=== PATIENT | female | born 1970 | race Caucasian/White ===

== ENCOUNTER 2022-04-13 06:37 | Observation (INO) ==
--- NOTE | 2022-01-20 14:47 | PAT Medication Instructions ---
Medication Instructions Date of Service January 20, 2022 Home Medications ibuprofen 200 mg tablet 200 mg PO Q6H PRN ASK your surgeon for instructions ibuprofen 200 mg tablet 200 mg PO Q6H PRN Other Notes NOTHING TO EAT OR DRINK AFTER MIDNIGHT. If you have any questions please call us at [phone] or [phone] or [phone] or [phone]
--- NOTE | 2022-01-25 08:24 | Anesthesiology Consultation ---
Date of Service January 25, 2022 Assessment & Plan (1) Encounter for pre-operative examination: - upcoming PCP pre-op appointment 02/10/22. Outpatient joint assessment: Patient is currently scheduled for inpatient pathway. If re-evaluated pending system levels during current pandemic/surgeon requests outpatient pathway, patient is acceptable candidate for outpatient joint program from anesthesia standpoint pending surgeon's office assessment of pt motivation/support/completion of same day joint program preop requirements. - COVID screening: Per fur blender on 01/20/2022: Travel screen Madison Dotson MD, no known COVID-19 positive contacts or current COVID-19 related symptoms in past 2 weeks. To surgeon's discretion if preop COVID testing needed. Chart Review Chart Review: Pending: Refer to Additional Notes / Consult section and Patient seen in Pre Admission Testing Teaching & Discussion Pre-Anesthesia Teaching/Discussion Notes: Instructed NPO after midnight before surgery, except medications with 15 cc of water. Medication instructions provided according to the PAT guidelines. History Surgery Operation Date: 03/03/22 11:35 Proposed Procedures p Left Total Knee Arthroplasty - Roldan Mcguire DO Height/Weight Height: 5 ft 2 in Weight: 90.5 kg Allergies Allergy/AdvReac Type Severity Reaction Status Date / Time nitrofurantoin Allergy Severe elevated Verified 01/20/22 09:34 LFTs latex Allergy Unknown localized Verified 01/20/22 09:34 SWELLING,HIVES,ITCHINESS morphine AdvReac Unknown Headache Verified 01/20/22 09:37 Medications Home Medications Medication Instructions Recorded Confirmed Last Taken ibuprofen 200 mg tablet 200 mg PO Q6H PRN Pain 01/20/22 01/20/22 Unknown Past Medical History Medical History (Updated 01/25/22 @ 08:36 by Sayra Juarez PA-C) Ectopic GERD (gastroesophageal reflux disease) History of blood transfusion Hx of hepatitis C 2019 TREATED Hypertension elevated in stressful clinical settings per pt Tobacco use Transaminitis Patient denies h/o stroke, seizures, heart attack, heart failure, DM, HTN, or blood clots. Exercise / Class Metabolic Activity III < 4 Walking/Shop/Light housework (denies CP or SOB with usual activities) Past Family History Family History Brother Drug abuse Diabetes Anxiety Hypertension Father Diabetes Kidney stones Kidney disease Hypertension Grandfather Myocardial infarction Uncle Myocardial infarction Other No family history of adverse response to anesthesia Past Surgical History Surgical History H/O left knee surgery L knee manipulated and scraped. H/O right knee surgery 3 ligaments replaced. History of surgery on wrist 11/2021- right History of unilateral fallopian tube excision S/P TKR (total knee replacement) right Past Anesthesia History No Hx of Anesthesia Complications and No Family Hx of Anesthesia Complications History of PONV No Hx of PONV and No Hx of Motion Sickness Social History Smoking Status: Current every day smoker tobacco type: cigarettes Smoking cigarettes per day: 1/2 PK PER DAY - ADVISED Do You Dip or Chew Tobacco: No Hx Alcohol Use: Yes alcohol intake frequency: a few times a month Hx Substance Use: Yes (COUPLE TIMES PER WEEK - ADVISED) substance use type: marijuana Review of Systems Snoring, denies witnessed apneas. Chronic dry cough, ongoing x yrs. Denies change or worsening. Patient denies chest pain, shortness of breath, dyspnea on exertion, fever, chills or wheezing. Physical Exam Vital Signs Vitals BP 158/96 P 80 TEMP 98.0 SP02 100% on RA RESP 17 Physical Full cervical extension range of motion without pain TMD 3.5 finger breadths Mallampati Score 2 Dentition: intact, upper right side chipped tooth; denies loose teeth, caps/crowns, implants or bridges Lungs: normal respiratory effort. Clear throughout to auscultation, no adventitious breath sounds Cardiac: regular rate and rhythm, no murmurs noted Carotid arteries: negative bruit bilat Lab Results Anesthesia Preop Results Results Anesthesia Widget: WBC 7.95 K/ul (4.8-10.8) 01/25/22 Hgb 13.9 g/dl (12.0-16.0) 01/25/22 Hct 40.9 % (34.1-44.9) 01/25/22 Plt 271 K/uL (130-400) 01/25/22 Na 139 mmol/L (136-145) 01/25/22 K 4.3 mmol/L (3.5-5.1) 01/25/22 Cl 108 mmol/L (98-107) H 01/25/22 CO2 25 mmol/L (21-32) 01/25/22 BUN 20 mg/dl (6-23) 01/25/22 Creat 0.87 mg/dl (0.6-1.2) 01/25/22 Glucose Level 95 mg/dl (70-99(Fasting)) 01/25/22 PT 10.6 Seconds (9.0-12.0) 01/25/22 PTT 29.3 Seconds (21.0-31.0) 01/25/22 INR 1.0 (0.9-1.1) 01/25/22 HA1c 5.9 % (4.5-5.6) H 01/25/22 Urine Color Yellow 01/25/22 Urine Appearance Clear (Clear) 01/25/22 Urine pH 5.5 (4.5-7.5) 01/25/22 Urine Specific Gilman 1.022 (1.000-1.030) 01/25/22 Urine Protein Negative (Negative) 01/25/22 Urine Glucose (UA) Negative (Negative) 01/25/22 Urine Ketones Negative (Negative) 01/25/22 Urine Blood Negative (Negative) 01/25/22 Urine Nitrite Negative (Negative) 01/25/22 Urine Bilirubin Negative (Negative) 01/25/22 Urine Urobilinogen Negative (Negative) 01/25/22 Urine Leukocyte Esterase Negative (Negative) 01/25/22 Blood Type B Positive 01/25/22 Antibody Screen NEGATIVE 01/25/22 Testing Electrocardiogram Date: 01/25/22 NSR, rate 75 bpm Chest X-Ray Date: 01/25/22 No acute cardiopulmonary findings COVID-19 Risk Screen Screening Information COVID-19 Screen Date: 01/25/22 Exposure 21 Days Family/Household +COVID Last 21 Days: No Exposure 10 Days Any COVID Exposure Last 10 Days: No Symptoms Last 10 Days Experienced COVID Sx Last 10 Days: No + COVID 0-90 Days COVID + in Last 0-90 Days: No
--- NOTE | 2022-02-12 08:29 | History & Physical Report ---
Date of Service February 12, 2022 date of surgery: 03/03/22 Procedure: Left Total Knee Arthroplasty Surgeon: Roldan Mcguire Assessment & Plan (1) Arthritis of knee, left: Plan: Further care discussed with patient and at this point in time has failed conservative measures and would like to proceed with a left total knee replacement. Plan on discharge will be home with home health physical therapy, evaluate for possible outpatient pathway. DVT prophylaxiswith TEDs, SCDs and will also place on aspirin 81 mg p.o. b.i.d. for a month postop. Patient will have follow up appointment in our office two weeks post op for staple/suture removal and re-evaluation. Patient otherwise has no other questions or concerns. The risks and benefits have been discussed including, but not limited to, risk of infection, nerve injury, stiffness, loss of motion, failure to improve, etc. Reasonable outcomes and options of treatment were discussed. An explanation of appropriate alternatives to the procedure that may be advantageous were discussed and their risks and benefits, as well as the risks and benefits of not proceeding with treatment. I offered to answer any additional inquiries concerning the treatment involved. All the patient's questions were answered. The patient is agreeable, understanding of the treatment plan and alternatives, and wishes to proceed with the treatment plan. History of Present Illness Chief Complaint: left knee pain Primary Care Provider: Judy Watkins DO Freya is a pleasant 52-year-old female who presents for preop evaluation prior to her left total knee replacement. She been having pain in this knee for many years now which is gradually worsened, is now affecting her daily activities including walking standing going up and down steps. She had previous knee arthroscopy in 2014 and since that time is undergone multiple injections including corticosteroid as well as viscosupplementation as well as clinical trials. At this point time she has failed conservative measures and like to proceed with surgical intervention. She is also tried oral anti-inflammatories as well as Tylenol with little to no relief. Allergies Allergy/AdvReac Type Severity Reaction Status Date / Time nitrofurantoin Allergy Severe elevated Verified 02/03/22 13:52 LFTs latex Allergy Unknown localized Verified 02/03/22 13:52 SWELLING,HIVES,ITCHINESS morphine AdvReac Unknown Headache Verified 02/03/22 13:52 Home Medications Medication Instructions Recorded Confirmed Type ibuprofen 200 mg tablet 200 mg PO Q6H PRN Pain 01/20/22 02/03/22 History Past Med/Surg History Medical History Ectopic GERD (gastroesophageal reflux disease) History of blood transfusion Hx of hepatitis C 2019 TREATED Hypertension elevated in stressful clinical settings per pt Knee pain Prediabetes Ruptured, fallopian tube Tobacco use Transaminitis Surgical History H/O left knee surgery L knee manipulated and scraped. H/O right knee surgery 3 ligaments replaced. History of surgery on wrist 11/2021- right History of unilateral fallopian tube excision S/P TKR (total knee replacement) right Family History Brother Drug abuse Diabetes Anxiety Hypertension Father Diabetes Kidney stones Kidney disease Hypertension Grandfather Myocardial infarction Uncle Myocardial infarction Father Throat cancer Aunt Myocardial infarction Other No family history of adverse response to anesthesia Denies family history of Ovarian cancer Prostate cancer Breast cancer Colorectal cancer Social History Smoking Status: Current every day smoker Tobacco Type: Cigarettes Age Started Using Tobacco: 18; packs per day: 0.5; Cigarettes Per Day: 1/2 PK PER DAY; Second Hand Exposure: No; Hx Alcohol Use: Yes Alcohol Intake Frequency: 2-3 x/Week Hx Substance Use: Yes (COUPLE TIMES PER WEEK - ADVISED) Prescribed Medications: Marijuana Preferred Language: Georgian Communication Ability: Effective Visual Impairment: No Limitations Hearing Ability: Normal Hydraulic Assembler Required: No Beliefs That Will Affect Care: None marital status: Single Current Living Situation: Other Current Living Situation Comment: LIVES W/ ROOMMATE current occupational status: employed current occupation: [employer] Feels Safe at Home: Yes Childhood Exposure to Second-Hand Smoke: No caffeine: Yes during the past year weight has: remained stable Dental Care, Regularly: Yes Physical Activity Frequency: Does not Exercise Seatbelt Use: always Sunscreen Use: Yes Assistive Devices: Cane Review of Systems Review of Systems: All systems reviewed & are unremarkable except as noted in HPI & below Constitutional: no fever, no chills and no sweats Respiratory: no cough and no dyspnea Cardiovascular: no chest pain, no dyspnea and no orthopnea Gastrointestinal: no abdominal pain, no nausea and no vomiting Musculoskeletal: as per Subjective / HPI Physical Exam Physical Exam: HT: 5ft 2in WT: 90.5kg Constitutional: WD/WN, vitals as above no acute distress Respiratory: normal respiratory effort, lungs clear to auscultation no respiratory distress, no labored breathing and does not use accessory muscles Cardiovascular: RRR, no murmur, no edema Gastrointestinal (Abdomen): normal bowel sounds, soft, nontender, no hepatosplenomegaly Musculoskeletal: Knee: + knee abnormal to inspection (LEFT KNEE: ), + effusion (+1 effusion), + surgical incision (well healed portals), + limited ROM of knee (ROM 0/3/110), + knee ROM with crepitation, + joint line tenderness (medial joint line) and + Jen's sign positive; no deformity, no skin erythema, no ecchymosis, no valgus laxity, no varus laxity, anterior drawer test negative, Helder's sign negative and pivot shift test negative Results & Data Results & Data ([facility]) Diagnostic Findings Left Knee X-ray: left knee series confirms degenerative changes to the left knee, greatest medial compartments and patellofemoral joint, showing joint space narrowing, osteophyte formation and subchondral sclerosis. no acute bony pathology noted.
--- NOTE | 2022-03-22 10:10 | History & Physical Report ---
Date of Service March 22, 2022 date of surgery: 04/13/22 Procedure: Left Total Knee Arthroplasty Surgeon: Roldan Mcguire Assessment & Plan (1) Arthritis of knee, left: Plan: Further care discussed with patient and at this point in time has failed conservative measures and would like to proceed with a left total knee replacement. Plan on discharge will be home with home health physical therapy, evaluate for possible outpatient pathway. DVT prophylaxiswith TEDs, SCDs and will also place on aspirin 81 mg p.o. b.i.d. for a month postop. Patient will have follow up appointment in our office two weeks post op for staple/suture removal and re-evaluation. Patient otherwise has no other questions or concerns. The risks and benefits have been discussed including, but not limited to, risk of infection, nerve injury, stiffness, loss of motion, failure to improve, etc. Reasonable outcomes and options of treatment were discussed. An explanation of appropriate alternatives to the procedure that may be advantageous were discussed and their risks and benefits, as well as the risks and benefits of not proceeding with treatment. I offered to answer any additional inquiries concerning the treatment involved. All the patient's questions were answered. The patient is agreeable, understanding of the treatment plan and alternatives, and wishes to proceed with the treatment plan. History of Present Illness Chief Complaint: left knee pain Primary Care Provider: Judy Watkins DO Freya is a pleasant 52-year-old female who presents for preop evaluation prior to her left total knee replacement. She been having pain in this knee for many years now which is gradually worsened, is now affecting her daily activities including walking standing going up and down steps. She had previous knee arthroscopy in 2014 and since that time is undergone multiple injections including corticosteroid as well as viscosupplementation as well as clinical trials. At this point time she has failed conservative measures and like to proceed with surgical intervention. She is also tried oral anti-inflammatories as well as Tylenol with little to no relief. Allergies Allergy/AdvReac Type Severity Reaction Status Date / Time nitrofurantoin Allergy Severe elevated Verified 02/22/22 10:31 LFTs latex Allergy Unknown localized Verified 02/22/22 10:31 SWELLING,HIVES,ITCHINESS morphine AdvReac Unknown Headache Verified 02/22/22 10:31 Home Medications Medication Instructions Recorded Confirmed Type ibuprofen 200 mg tablet 200 mg PO Q6H PRN Pain 01/20/22 02/22/22 History Past Med/Surg History Medical History Ectopic GERD (gastroesophageal reflux disease) History of blood transfusion Hx of hepatitis C 2019 TREATED Hypertension elevated in stressful clinical settings per pt Knee pain Prediabetes Ruptured, fallopian tube Tobacco use Transaminitis Surgical History H/O left knee surgery L knee manipulated and scraped. H/O right knee surgery 3 ligaments replaced. History of surgery on wrist 11/2021- right History of unilateral fallopian tube excision S/P TKR (total knee replacement) right Family History Brother Drug abuse Diabetes Anxiety Hypertension Father Diabetes Kidney stones Kidney disease Hypertension Grandfather Myocardial infarction Uncle Myocardial infarction Father Throat cancer Aunt Myocardial infarction Other No family history of adverse response to anesthesia Denies family history of Ovarian cancer Prostate cancer Breast cancer Colorectal cancer Social History Smoking Status: Current every day smoker Tobacco Type: Cigarettes Age Started Using Tobacco: 18; packs per day: 0.5; Cigarettes Per Day: 1/2 PK PER DAY; Second Hand Exposure: No; Hx Alcohol Use: Yes Alcohol Intake Frequency: 2-3 x/Week Hx Substance Use: Yes (COUPLE TIMES PER WEEK - ADVISED) Prescribed Medications: Marijuana Preferred Language: Chadian Communication Ability: Effective Visual Impairment: No Limitations Hearing Ability: Normal Repossession Agent Required: No Beliefs That Will Affect Care: None marital status: Single Current Living Situation: Other Current Living Situation Comment: LIVES W/ ROOMMATE current occupational status: employed 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 Feels Safe at Home: Yes Childhood Exposure to Second-Hand Smoke: No caffeine: Yes during the past year weight has: remained stable Dental Care, Regularly: Yes Physical Activity Frequency: Does not Exercise Seatbelt Use: always Sunscreen Use: Yes Assistive Devices: Cane Review of Systems Constitutional: no fever, no chills and no sweats Respiratory: no cough and no dyspnea Cardiovascular: no chest pain, no dyspnea and no orthopnea Gastrointestinal: no abdominal pain, no nausea and no vomiting Musculoskeletal: as per Subjective / HPI Physical Exam Physical Exam: HT: 5ft 2in WT: 90.5kg Constitutional: WD/WN, vitals as above no acute distress Respiratory: normal respiratory effort, lungs clear to auscultation no respiratory distress, no labored breathing and does not use accessory muscles Cardiovascular: RRR, no murmur, no edema Gastrointestinal (Abdomen): normal bowel sounds, soft, nontender, no hepatosplenomegaly Musculoskeletal: Knee: + knee abnormal to inspection (LEFT KNEE: ), + effusion (+1 effusion), + surgical incision (well healed portals), + limited ROM of knee (ROM 0/3/110), + knee ROM with crepitation, + joint line tenderness (medial joint line) and + Jen's sign positive; no deformity, no skin erythema, no ecchymosis, no valgus laxity, no varus laxity, anterior drawer test negative, Helder's sign negative and pivot shift test negative Results & Data Results & Data ([facility]) Diagnostic Findings Left Knee X-ray: left knee series confirms degenerative changes to the left knee, greatest medial compartments and patellofemoral joint, showing joint space narrowing, osteophyte formation and subchondral sclerosis. no acute bony pathology noted.
[~2022-04-13 06:37] MED LIST: ACETAMINOPHEN 500 MG TAB PO SCH; CeleBREX 200 MG CAP PO SCH; FAMOTIDINE 20 MG TAB PO SCH; GABAPENTIN 900 MG DOSE PO SCH; LR 500ML BOLUS, THEN 15ML/HR IV SCH; MEPIVACAINE HCL 1.5% 30 ML VIAL ONE; METOCLOPRAMIDE HCL 10 MG TABLET PO SCH; ROPIVACAINE 0.5% 5 MG/ML 30 ML VIAL ONE; ROPIVACAINE 0.5% HCL/PF 150 MG, BUPIVACAINE 0.75% MPF 20 ML, EPINEPHrine 30MG/30ML (OR ... INSTIL SCH; TRANEXAMIC ACID 1,000 MG **IV Intra-op IV SCH; TRANEXAMIC ACID 1,000 MG **IV Pre-op IV SCH; ceFAZolin 2000MG 2,000 MG/15 ML SYR IV SCH; dexAMETHasone 4 MG TAB PO SCH
[2022-04-13] MEDS ORDERED: MIDAZOLAM HCL 1 MG/ML 2ML VIAL ONE (06:53)
[2022-04-13] MEDS ORDERED: KETAMINE 50 MG/5 ML SYRINGE ONE (06:54)
[2022-04-13] MEDS ORDERED: ORTHO JOINT ANESTHETIC ONE (07:08)
[2022-04-13 07:15] LABS: Basophils # (auto) 0.04 K/uL (0-0.2); Basophils % (auto) 0.5 %; Eosinophils # (auto) 0.49 K/uL (0-0.50); Hematocrit (blood only) 43.2 % (34.1-44.9); Hemoglobin 14.5 g/dl (12.0-16.0); Immature Granulocytes # (auto) 0.01 K/uL (0.00-0.02); Immature Granulocytes % (auto) 0.1 %; Lymphocytes # (auto) 3.48 K/uL (1.2-3.4); Lymphocytes % (auto) 42.8 %; Mean Corpuscular Hemoglobin 28.7 pg (25.0-34.0); Mean Corpuscular Hgb Conc 33.6 g/dL (32.0-36.0); Mean Corpuscular Volume 85.5 fL (80.0-100.0); Monocytes # (auto) 0.76 K/uL (0.24-0.82); Monocytes % (auto) 9.3 %; Neutrophils # (auto) 3.36 K/uL (1.4-6.5); Neutrophils % (auto) 41.3 %; Platelet Count 287 K/uL (130-400); RDW Coefficient of Variation 12.9 % (11.5-14.5); RDW Standard Deviation 40.5 fL (36.4-46.3); Red Blood Count 5.05 M/uL (3.93-5.22); White Blood Count 8.14 K/ul (4.8-10.8)
--- NOTE | 2022-04-13 07:22 | History & Physical Bridge Note ---
Date of Service April 13, 2022 History & Physical Bridge Note I have examined the patient, reviewed the History & Physical and in the interval since the performance of the History & Physical I have noted the following changes of clinical significance: no changes noted
[2022-04-13 07:32] LABS: Prothrombin Time 10.3 Seconds (9.0-12.0)
[2022-04-13 07:49] LABS: Creatinine Clr Calc Pharmacy 78.8 ml/min; Est GFR (African American) 88.8 ml/min; Est GFR (Non-African American) 76.6 ml/min; Potassium 3.9 mmol/L (3.5-5.1)
[2022-04-13] MEDS ORDERED: ATROPINE SULFATE 0.1 MG/ML 10ML SYR IV PRN (07:57)
[2022-04-13] MEDS ORDERED: fentaNYL citrate 100 MCG/2 ML VIAL IV PRN (07:57)
[2022-04-13] MEDS ORDERED: ONDANSETRON INJ 2 MG/ML 2 ML VIAL IV PRN ×3 (07:57→15:17)
[2022-04-13] MEDS ORDERED: ePHEDrine sulfate 50 MG/ML AMP IV PRN (07:57)
[2022-04-13] MEDS ORDERED: BUPIVACAINE 0.5 % 5 MG/1 ML PF 10ML VIAL ONE (08:26)
[2022-04-13] MEDS ORDERED: ONDANSETRON INJ 2 MG/ML 2 ML VIAL ONE (08:51)
[2022-04-13] MEDS ORDERED: KETOROLAC 30 MG/ML VIAL ONE (08:51)
[2022-04-13] MEDS ORDERED: DEXAMETHASONE SOD INJ 4 MG/ML VIAL ONE (08:51)
[2022-04-13] MEDS ORDERED: GLYCOPYRROLATE 0.2 MG/ML VIAL ONE (08:51)
[2022-04-13] MEDS ORDERED: PROPOFOL IV EMULSION 10 MG/ML 20 ML VIAL IV ONE ×2 (08:51→09:33)
[2022-04-13] MEDS ORDERED: LIDOCAINE 2% MPF LOCAL 5 ML VIAL INFIL ONE (08:51)
--- NOTE | 2022-04-13 09:38 | Operative Report ---
Post Operative Report Pre & Post Diagnosis Operation Date: 04/13/22 08:25 Pre-Op Diagnosis: Osteoarthritis Left Knee Post-Op Diagnosis: Osteoarthritis Left Knee I identified the patient and participated in the time-out.: Yes Procedure Operation Date: 04/13/22 08:25 Actual Procedures p Left Total Knee Arthroplasty(Left) utilizing [employer] journey 2 patient matched total knee arthroplasty size femur 5 tibia 3 polyeleven patella 29 bernardo- Roldan Mcguire DO Surgeon Roldan Mcguire DO Net Manager Nathan Dubose Estimated Blood Loss 5 Findings Consistent with Post-Op Diagnosis Patient presents with severe end-stage tricompartmental degenerative joint disease varus alignment subchondral sclerosis marginal osteophytes [id number] with moderate to large effusion Specimens Bone and cartilage Drains Medium bore Hemovac Anesthesia Type MAC Spinal Regional Complications none Disposition Accompanied Patient To Recovery: No Disposition: Recovery Room Indications Patient presents with severe end-stage DJD no response to conservative management clinic physical therapy anti-inflammatories relative rest activity modification corticosteroid injection viscosupplementation the above intraoperative findings were noted Description of Procedure After proper prepping and draping of the left lower extremity anterior midline incision was made over the region of the extensor extensor mechanism after meticulous hemostasis was obtained and maintained in subcutaneous tissues a medial parapatellar incision was made The patella was subluxed lateralward the medial lateral gutter were cleaned from any hypertrophic synovitis and scar tissue of the distal femoral block was placed and the distal femoral osteotomy cut was made subsequently the chamfers anterior and posterior osteotomy cuts were made utilizing the 4-in-1 block the tibia was subsequently subluxed anteriorward medial and ateral meniscal remnants were excised in their entirety remnants of the anterior and posterior cruciate ligaments were excised in their entirety excellent exposure of the proximal tibia was obtained the tibial osteotomy guide was placed on the proximal tibial osteotomy cut was made once again the knee was irrigated with copious amounts of sterile saline solution the patella was subsequently everted lateralward thickened scar tissue around the patella was removed the patella was subsequently cut utilizing a freehand technique and was drilled prepared for final preparation and placement of patell a socially flexion-extension gaps were checked and the equal and symmetric trials were placed to the appropriate femoral and tibial trials with poly-spacer being placed for equal flexion and extension gaps and full range of motion including extension to 0 and flexion to 140 the trial components after having been taken to recovery range of motion was subsequently removed meticulous hemostasis was obtained and maintained subsequently a knee block injection of joint cocktail including ropivacaine 0.5% 150 mg. Bupivacaine 0.5% epinephrine 1-200,030 mL's toradol 30 mg dexamethasone 4 mg ketamine 10 mg clonidine 100 micrograms normal saline solution 30 mg was infiltrated into the soft tissues of the posterior knee medial lateral gutters and periosteal synovium special attention was paid to protect neurovascular structures at all times subsequently trial components having been removed the knee was irrigated with sterile saline solution. debris was removed the proximal tibia was subsequently prepared and was made ready for the placement of the tibial component tibial component was also cemented and tamped into position the femoral component was subsequently placed and cemented in the position the patellar component was subsequently cemented in position because hemostasis once again obtained and maintained wound having been thoroughly irrigated with debridement and debridement lavage was performed as well as a medial parapatellar incision closed with #1 Vicryl in interrupted fashion subcutaneous was closed with #2 Vicryl skin was closed with skin clips. PA-C was necessary for prepping and drapping as well as wound closure of deep fascia Sub cutaneous tissue and skin and was necessary for the case. A sterile compressive dressing was placed patient was taken to recovery in stable condition of report dictated by Maynor I attest to the content of the Intraoperative Record and any orders documented therein. Any exceptions are noted below.Due to the complex nature of the procedure, the entire surgery was performed with the operational assistance of Nathan RODRIGUEZ. The speech assistant, under direct supervision, was involved in the actual performance of all aspects of the surgical procedure including hemostasis, tissue retraction and incision, instrument management, patient positioning, and wound closure. I attest to the content of the Intraoperative Record and any orders documented therein. Any exceptions are noted below.
[2022-04-13] MEDS ORDERED: HYDROmorphone INJ 0.5 MG/0.5 ML SYR IV PRN ×2 (10:22→15:17)
[2022-04-13] MEDS ORDERED: oxyCODONE HCL IR 5 MG TAB (IMMEDIATE RELEASE) PO PRN (10:22)
[2022-04-13] MEDS ORDERED: SODIUM CHLORIDE 0.9% 1000ML 1,000 ML IV SCH (10:30)
--- NOTE | 2022-04-13 10:55 | XRay Report ---
TWO VIEWS LEFT KNEE CLINICAL HISTORY: Postoperative examination. FINDINGS: AP and crosstable lateral portable views of the left knee are obtained. A left knee arthrop lasty is in near anatomic alignment. There has been undersurface remodeling of the patella. No acute fracture is seen. There are expected postoperative changes around the knee including a surgical drain , soft tissue edema, and subcutaneous gas. IMPRESSION: Expected postoperative changes status post left knee arthroplasty. No acute fracture is s een. ACT 112: Negative or not required by law. Electronically signed by: Bladimir Banegas M.D. 04/13/2022 10:54 AM
--- NOTE | 2022-04-13 11:29 | Anesthesiology Progress Note ---
Date of Service April 13, 2022 Anesthesia Post Procedure Vital Signs Vital Signs: Temp Pulse Resp BP Pulse Ox O2 Del Method O2 Flow Rate 04/13/22 11:20 80 16 116/82 94 Room Air 04/13/22 11:10 97.9 F 79 16 112/81 94 Room Air 04/13/22 11:00 97.9 F 78 16 127/84 94 Room Air 04/13/22 10:50 81 17 121/96 94 Room Air 04/13/22 10:40 77 17 121/78 95 Room Air 04/13/22 10:30 74 17 111/69 100 Oxymask 5 04/13/22 10:23 98.1 F 83 18 108/62 99 Oxymask 5 04/13/22 07:07 97.9 F 86 20 147/97 H 100 Room Air Transfer of Care Handoff Completed per policy Notes Mental Status: alert / awake / arousable and participated in evaluation Patient Amnestic to Procedure: Yes Nausea / Vomiting: adequately controlled Pain: adequately controlled Airway Patency, RR, SpO2: stable & adequate BP & HR: stable & adequate Hydration State: stable & adequate Neuraxial Anesthesia: was administered and sensory block is resolving Anesthetic Complications: no major complications apparent and Pt Satisfied with anesthetic care
[2022-04-13] MEDS ORDERED: bisacodyL 10 MG SUPP PR PRN (15:17)
[2022-04-13] MEDS ORDERED: NALOXONE HCL 0.4 MG/1 ML VIAL/CARP IV PRN (15:17)
[2022-04-13] MEDS ORDERED: MAGNESIUM HYDROXIDE SUSP 30 ML UDC PO PRN (15:17)
[2022-04-13] MEDS ORDERED: diphenhydrAMINE 50 MG/ML VIAL IV PRN (15:17)
[2022-04-13] MEDS: SODIUM CHLORIDE 0.9% 1000ML 1,000 ML IV SCH (15:41)
[2022-04-13] MEDS: ACETAMINOPHEN 500 MG TAB PO SCH ×2 (16:58→23:03)
[2022-04-13] MEDS: ceFAZolin 2000MG 2,000 MG/15 ML SYR IV SCH (17:47)
[2022-04-13] MEDS: oxyCODONE HCL IR 5 MG TAB (IMMEDIATE RELEASE) PO PRN (19:09)
[2022-04-13] MEDS: ASPIRIN 81 MG ECTAB PO SCH (20:01)
[2022-04-13] MEDS: DOCUSATE SODIUM 100 MG CAP PO SCH (20:03)
[2022-04-13] MEDS ORDERED: SENNA 8.6 MG TAB PO SCH (21:00)
[2022-04-13] MEDS ORDERED: ATORVASTATIN 20 MG TAB PO SCH (21:00)
[2022-04-14] MEDS: ceFAZolin 2000MG 2,000 MG/15 ML SYR IV SCH (00:20)
[2022-04-14] MEDS: SODIUM CHLORIDE 0.9% 1000ML 1,000 ML IV SCH (01:59)
[2022-04-14] MEDS: oxyCODONE HCL IR 5 MG TAB (IMMEDIATE RELEASE) PO PRN ×2 (01:59→10:59)
[2022-04-14 06:32] LABS: Hematocrit (blood only) 35.1 % (34.1-44.9); Hemoglobin 12.1 g/dl (12.0-16.0); Mean Corpuscular Hemoglobin 28.9 pg (25.0-34.0); Mean Corpuscular Hgb Conc 34.5 g/dL (32.0-36.0); Mean Corpuscular Volume 83.8 fL (80.0-100.0); Platelet Count 280 K/uL (130-400); RDW Coefficient of Variation 12.7 % (11.5-14.5); RDW Standard Deviation 38.5 fL (36.4-46.3); Red Blood Count 4.19 M/uL (3.93-5.22); White Blood Count 12.67 K/ul (4.8-10.8)
[2022-04-14 07:00] LABS: BUN Creatinine Ratio 24.4 (10-20); Calcium 8.5 mg/dl (8.5-10.1); Creatinine Clr Calc Pharmacy 94.1 ml/min; Est GFR (African American) 102.7 ml/min; Est GFR (Non-African American) 88.6 ml/min; Potassium 4.4 mmol/L (3.5-5.1)
[2022-04-14] MEDS: ACETAMINOPHEN 500 MG TAB PO SCH (07:39)
--- NOTE | 2022-04-14 08:21 | Orthopedic Progress Note ---
Date of Service April 14, 2022 Assessment & Plan (1) Arthritis of knee, left: Plan: Postop day 1 status post left total knee arthroplasty PT/OT protocols. Weightbearing as tolerated. DVT prophylaxis-aspirin p.o. twice daily, BRANDON Ortega. Pain management as written. Discussed with patient about history of increased transaminases in the past. We discussed that she could limit her Tylenol use as needed. Discharge planning-patient is planning for home health services upon discharge. Plan for discharge today. Admission and Anticipated Discharge Date Admission Date: April 13, 2022 Subjective Postop day 1 Patient sitting up in bed awake and alert. No complaints this morning. Pain is controlled. Patient is hoping to go home today. Physical Exam Physical Exam: Dressings are clean, dry, and intact. Calves are soft nontender. Neurovascular intact. Toes are mobile. She has good dorsiflexion and plantarflexion of the left foot. Hemovac drainage was approximately 100 cc from the previous shift. Results & Data ([facility]) Vital Signs (Past 12 Hours) Vital Signs Temp Pulse Pulse Resp BP Pulse Ox O2 Del Method 04/14/22 07:00 36.9 C 77 18 124/82 97 Room Air 04/14/22 03:00 36.8 C 69 18 109/68 98 Room Air 04/13/22 22:50 36.8 C 76 20 129/87 97 Room Air Laboratory Results Laboratory Results WBC 12.67 K/ul (4.8-10.8) H 04/14/22 05:16 RBC 4.19 M/uL (3.93-5.22) 04/14/22 05:16 Hgb 12.1 g/dl (12.0-16.0) 04/14/22 05:16 Hct 35.1 % (34.1-44.9) 04/14/22 05:16 MCV 83.8 fL (80.0-100.0) 04/14/22 05:16 MCH 28.9 pg (25.0-34.0) 04/14/22 05:16 MCHC 34.5 g/dL (32.0-36.0) 04/14/22 05:16 RDW Std Deviation 38.5 fL (36.4-46.3) 04/14/22 05:16 RDW Coeff of Laura 12.7 % (11.5-14.5) 04/14/22 05:16 Plt Count 280 K/uL (130-400) 04/14/22 05:16 MPV 11.0 fL (9.4-12.3) 04/14/22 05:16 Immature Gran % (Auto) 0.1 % 04/13/22 07:00 Neut % (Auto) 41.3 % 04/13/22 07:00 Lymph % (Auto) 42.8 % 04/13/22 07:00 Dillon % (Auto) 9.3 % 04/13/22 07:00 Eos % (Auto) 6.0 % 04/13/22 07:00 Baso % (Auto) 0.5 % 04/13/22 07:00 Neut # (Auto) 3.36 K/uL (1.4-6.5) 04/13/22 07:00 Lymph # (Auto) 3.48 K/uL (1.2-3.4) H 04/13/22 07:00 Dillon # (Auto) 0.76 K/uL (0.24-0.82) 04/13/22 07:00 Eos # (Auto) 0.49 K/uL (0-0.50) 04/13/22 07:00 Baso # (Auto) 0.04 K/uL (0-0.2) 04/13/22 07:00 Immature Gran # (Auto) 0.01 K/uL (0.00-0.02) 04/13/22 07:00 PT 10.3 Seconds (9.0-12.0) 04/13/22 07:00 INR 1.0 (0.9-1.1) 04/13/22 07:00 APTT 28.0 Seconds (21.0-31.0) 04/13/22 07:00 PTT Ratio 1.0 04/13/22 07:00 Sodium 138 mmol/L (136-145) 04/14/22 05:16 Potassium 4.4 mmol/L (3.5-5.1) 04/14/22 05:16 Chloride 108 mmol/L (98-107) H 04/14/22 05:16 Carbon Dioxide 24 mmol/L (21-32) 04/14/22 05:16 Anion Gap 6 (3-11) 04/14/22 05:16 BUN 19 mg/dl (6-23) 04/14/22 05:16 Creatinine 0.78 mg/dl (0.6-1.2) 04/14/22 05:16 Est Cr Clr Drug Dosing 94.1 ml/min 04/14/22 05:16 Est GFR ( Amer) 102.7 ml/min 04/14/22 05:16 Est GFR (Non-Af Amer) 88.6 ml/min 04/14/22 05:16 BUN/Creatinine Ratio 24.4 (10-20) H 04/14/22 05:16 Glucose 128 mg/dl (70-99(Fasting)) H 04/14/22 05:16 Calcium 8.5 mg/dl (8.5-10.1) 04/14/22 05:16 POC Ur Test NEG (NEG) 04/13/22 06:45 SARS-CoV-2, RNA, NAAT NEGATIVE (NEGATIVE) 04/13/22 Unknown Blood Type B Positive 04/13/22 07:00 Antibody Screen NEGATIVE 04/13/22 07:00 Impressions Knee X-Ray 04/13/22 10:22 TWO VIEWS LEFT KNEE CLINICAL HISTORY: Postoperative examination. FINDINGS: AP and crosstable lateral portable views of the left knee are obtained. A left knee arthroplasty is in near anatomic alignment. There has been undersurface remodeling of the patella. No acute fracture is seen. There are expected postoperative changes around the knee including a surgical drain, soft tissue edema, and subcutaneous gas. IMPRESSION: Expected postoperative changes status post left knee arthroplasty. No acute fracture is seen. ACT 112: Negative or not required by law. Electronically signed by: Bladimir Banegas M.D. 04/13/2022 10:54 AM
[2022-04-14] MEDS: ASPIRIN 81 MG ECTAB PO SCH (08:36)
[2022-04-14] MEDS: DOCUSATE SODIUM 100 MG CAP PO SCH (08:36)
[2022-04-14] MEDS ORDERED: MULTIVITAMIN TAB PO SCH (09:00)
[2022-04-14] MEDS ORDERED: PANTOprazole 40 MG TAB PO SCH (09:00)
--- NOTE | 2022-04-16 09:30 | Discharge Summary ---
Date of Service April 16, 2022 Admission HPI Per Admitting Provider Ingris is a pleasant 52-year-old female who presents for preop evaluation prior to her left total knee replacement. She been having pain in this knee for many years now which is gradually worsened, is now affecting her daily activities including walking standing going up and down steps. She had previous knee arthroscopy in 2014 and since that time is undergone multiple injections including corticosteroid as well as viscosupplementation as well as clinical trials. At this point time she has failed conservative measures and like to proceed with surgical intervention. She is also tried oral anti-inflammatories as well as Tylenol with little to no relief. Admission Exam Per Admitting Provider Physical Exam: HT: 5ft 2in WT: 90.5kg Constitutional: WD/WN, vitals as above no acute distress Respiratory: normal respiratory effort, lungs clear to auscultation no respiratory distress, no labored breathing and does not use accessory muscles Cardiovascular: RRR, no murmur, no edema Gastrointestinal (Abdomen): normal bowel sounds, soft, nontender, no hepatosplenomegaly Musculoskeletal: Knee: + knee abnormal to inspection (LEFT KNEE: ), + effusion (+1 effusion), + surgical incision (well healed portals), + limited ROM of knee (ROM 0/3/110), + knee ROM with crepitation, + joint line tenderness (medial joint line) and + Jen's sign positive; no deformity, no skin erythema, no ecchymosis, no valgus laxity, no varus laxity, anterior drawer test negative, Helder's sign negative and pivot shift test negative Principal Diagnosis Left Knee Osteoarthritis Discharge Data Allergies Allergy/AdvReac Type Severity Reaction Status Date / Time nitrofurantoin Allergy Severe elevated Verified 04/13/22 06:59 LFTs latex Allergy Intermediate localized Verified 04/13/22 06:59 SWELLING,HIVES,ITCHINESS morphine AdvReac Mild Headache Verified 04/13/22 06:59 Procedures Performed Operation Date: 04/13/22 08:25 Actual Procedures p Left Total Knee Arthroplasty(Left) - Roldan Mcguire DO Ordered Studies 03/03/22 05:00 US - OR guided needle placemen Routine 04/13/22 05:00 US - OR guided needle placemen Routine Hospital Course (1) Arthritis of knee, left: Patient:INGRIS CHAPA Admit Date:04/13/22 MR#:[id number] Att Phy:Roldan Mcguire D.O. Acct ID:[id number] Jacqui Phy:JuneJudy DO Shailesh Date:1970 Fam Phy: Age:52 Location: Sex:F Room/Bed:[facility] cc: ~ *NOTICE TO RECEIVING DEMOCRAT/AGENCY This information is strictly Confidential and protected under [place] law. [place] law prohibits you from making any further disclosure of this information unless further disclosure is expressly permitted by the written consent of the person to whom it pertains or is authorized by law. A general authorization for the release of medical or other information is not sufficient for this purpose. Hospital accepts no responsibility if the information is made available to any other person, INCLUDING THE PATIENT. Date of Service April 14, 2022 Assessment & Plan (1) Arthritis of knee, left: Plan: Postop day 1 status post left total knee arthroplasty PT/OT protocols. Weightbearing as tolerated. DVT prophylaxis-aspirin p.o. twice daily, SCDs, BRANDON garcia. Pain management as written. Discussed with patient about history of increased transaminases in the past. We discussed that she could limit her Tylenol use as needed. Discharge planning-patient is planning for home health services upon discharge. Plan for discharge today. Admission and Anticipated Discharge Date Admission Date: April 13, 2022 Subjective Postop day 1 Patient sitting up in bed awake and alert. No complaints this morning. Pain is controlled. Patient is hoping to go home today. Physical Exam Physical Exam: Dressings are clean, dry, and intact. Calves are soft nontender. Neurovascular intact. Toes are mobile. She has good dorsiflexion and plantarflexion of the left foot. Hemovac drainage was approximately 100 cc from the previous shift. Results & Data ([facility]) Vital Signs (Past 12 Hours) Vital Signs Temp Pulse Pulse Resp BP Pulse Ox O2 Del Method 04/14/22 07:00 36.9 C 77 18 124/82 97 Room Air 04/14/22 03:00 36.8 C 69 18 109/68 98 Room Air 04/13/22 22:50 36.8 C 76 20 129/87 97 Room Air Laboratory Results Laboratory Results WBC 12.67 K/ul (4.8-10.8) H 04/14/22 05:16 RBCE 4.19 M/uL (3.93-5.22) 04/14/22 05:16 Hgb 12.1 g/dl (12.0-16.0) 04/14/22 05:16 Hct 35.1 % (34.1-44.9) 04/14/22 05:16 MCV 83.8 fL (80.0-100.0) 04/14/22 05:16 MCH 28.9 pg (25.0-34.0) 04/14/22 05:16 MCHC 34.5 g/dL (32.0-36.0) 04/14/22 05:16 RDW Std Deviation 38.5 fL (36.4-46.3) 04/14/22 05:16 RDW Coeff of Laura 12.7 % (11.5-14.5) 04/14/22 05:16 Plt Count 280 K/uL (130-400) 04/14/22 05:16 MPV 11.0 fL (9.4-12.3) 04/14/22 05:16 Immature Gran % (Auto) 0.1 % 04/13/22 07:00 Neut % (Auto) 41.3 % 04/13/22 07:00 Lymph % (Auto) 42.8 % 04/13/22 07:00 Dent % (Auto) 9.3 % 04/13/22 07:00 Eos % (Auto) 6.0 % 04/13/22 07:00 Baso % (Auto) 0.5 % 04/13/22 07:00 Neut # (Auto) 3.36 K/uL (1.4-6.5) 04/13/22 07:00 Lymph # (Auto) 3.48 K/uL (1.2-3.4) H 04/13/22 07:00 Dent # (Auto) 0.76 K/uL (0.24-0.82) 04/13/22 07:00 Eos # (Auto) 0.49 K/uL (0-0.50) 04/13/22 07:00 Baso # (Auto) 0.04 K/uL (0-0.2) 04/13/22 07:00 Immature Gran # (Auto) 0.01 K/uL (0.00-0.02) 04/13/22 07:00 PT 10.3 Seconds (9.0-12.0) 04/13/22 07:00 INR 1.0 (0.9-1.1) 04/13/22 07:00 APTT 28.0 Seconds (21.0-31.0) 04/13/22 07:00 PTT Ratio 1.0 04/13/22 07:00 Sodium 138 mmol/L (136-145) 04/14/22 05:16 Potassium 4.4 mmol/L (3.5-5.1) 04/14/22 05:16 Chloride 108 mmol/L (98-107) H 04/14/22 05:16 Carbon Dioxide 24 mmol/L (21-32) 04/14/22 05:16 Anion Gap 6 (3-11) 04/14/22 05:16 BUN 19 mg/dl (6-23) 04/14/22 05:16 Creatinine 0.78 mg/dl (0.6-1.2) 04/14/22 05:16 Est Cr Clr Drug Dosing 94.1 ml/min 04/14/22 05:16 Est GFR ( Amer) 102.7 ml/min 04/14/22 05:16 Est GFR (Non-Af Amer) 88.6 ml/min 04/14/22 05:16 BUN/Creatinine Ratio 24.4 (10-20) H 04/14/22 05:16 Glucose 128 mg/dl (70-99(Fasting)) H 04/14/22 05:16 Calcium 8.5 mg/dl (8.5-10.1) 04/14/22 05:16 POC Ur Test NEG (NEG) 04/13/22 06:45 SARS-CoV-2, RNA, NAAT NEGATIVE (NEGATIVE) 04/13/22 Unknown Blood Type B Positive 04/13/22 07:00 Antibody Screen NEGATIVE 04/13/22 07:00 Impressions Knee X-Ray 04/13/22 10:22 TWO VIEWS LEFT KNEE CLINICAL HISTORY: Postoperative examination. FINDINGS: AP and crosstable lateral portable views of the left knee are obtained. A left knee arthroplasty is in near anatomic alignment. There has been undersurface remodeling of the patella. No acute fracture is seen. There are expected postoperative changes around the knee including a surgical drain, soft tissue edema, and subcutaneous gas. IMPRESSION: Expected postoperative changes status post left knee arthroplasty. No acute fracture is seen. ACT 112: Negative or not required by law. Electronically signed by: Bladimir Banegas M.D. 04/13/2022 10:54 AM Signed By: <Electronically signed by Nathan Araujo PA-C> 04/14/22 0821 <Electronically signed by Festus Tierney MD> 04/14/22 1257 Created:04/14/2218 Total Time Total Time Spent Total Time Spent (In Minutes): 5 Discharge Plan Discharge Items Patient Disposition: Home - Home Health Services Reason For Visit: Osteoarthritis Left Knee Discharge Diagnosis: Osteoarthritis left knee Activity: Per Instructions section Weightbearing Comment: As tolerated with walker Non-emergency contact: Surgeon Call non-emergency contact if: you have any medication questions, your temperature is above 101.5, your wound has increased redness and your wound has increased drainage Follow-up/Referrals: [facility] [Outside] (as per surgeon's office ) Judy Watkins DO [Primary Care Provider] - Roldan Mcguire DO [Surgeon] - (Follow-up with Dr. Mcguire or his PA in 2 weeks from the day of your surgery for your first postoperative visit.) Diet: Regular Addtl Attending Provider Instructions: MEDICATIONS: Your medications have been sent to your pharmacy prior to your surgery. You may pick them up either prior to or after. Your medications usually include some type of narcotic pain medication, acetaminophen, aspirin, a stool softener or stimulant, and possibly an antibiotic. If you have any questions about your medications, please call the office. You can use your Tylenol sparingly secondary to your history of elevated liver enzymes. 2 extra strength tablets every 8 hours if needed. ACTIVITY RECOMMENDATIONS: SELF CARE INSTRUCTIONS AFTER TOTAL KNEE REPLACEMENT A. You may need to continue a physical therapy program after discharge from the hospital. There are several options available to you. Your doctor will assist you in selecting the best one for you. 1. An out-patient facility 2 to 3 times a week for therapy or home therapy. 2. Continue working on all exercises taught to you in the hospital. Your goals should be to increase bending of your knee to 90 degrees and beyond and to fully straighten your knee. B. You may progress at your own pace from walking with a walker or crutches to a cane; then to no assistive devices. C. Make walking a part of your daily routine. Be up as much as comfortable with rest periods throughout the day. Rest with leg elevation is very important. Use the ice wrap frequently for the first 3-4 weeks. D. There are no restrictions on activities. You may ride in a car, shop, participate in cage maker machine and all social activities. E. Wear the long elastic stockings (BRANDON hose) 20 hours a day for 2 weeks after surgery. They can be removed several times a day for laundering and for a bath. F. You may shower, no tub baths until cleared by your doctor. SPECIAL CARE INSTRUCTIONS: VERY IMPORTANT TO READ AND REVIEW A. There are a few signs you need to watch for after you are home. Call [facility] [place] if you notice any of the followin. Increased severe knee pain. Some pain is expected especially when you exercise. 2. Increased swelling in your leg or knee; pain or swelling of the calf muscle in either lower leg. 3. Any fluid drainage from the incision. 4. Shortness of breath or chest pain. B. Please call [facility] at if you have any concerns or questions about your operation or recovery. The doctor or his nurse will return your call promptly. C. You must take antibiotics before dental work, bladder, bowel or other surgery. Your doctor will provide you with a permanent care to carry describing this precaution. IMPORTANT: * REMEMBER TO TAKE ASPIRIN, 81 MG, TWICE DAILY FOR 4 WEEKS UNLESS OTHERWISE DIRECTED. THIS IS YOUR BLOOD THINNER. * HIGH RISK PATIENTS MAY BE PRESCRIBED A STRONGER BLOOD THINNER. THIS WILL BE PROVIDED AT DISCHARGE. * CALL IF INCREASED PAIN, REDNESS, DRAINAGE OR FEVER GREATER THAT 101. * WEAR BRANDON HOSE 20 HOURS PER DAY FOR 2 WEEKS. * NHAN Dressing- This is a large suction dressing covering your incision. This will help pull any excess drainage from the wound and allow your incision to heal properly. You may shower with this if you can keep the unit outside of the shower. If any bleeding or leakage is noted please call your doctor's office. This will remain on your incision for 7 days and then should be removed. This can be done yourself or by the home nursing staff if applicable. The entire unit is disposable once removed. Once removed, keep incision clean and dry. If redness or drainage is noted, please call your surgeon. . *After your nhan dressing has been removed --> DERMABOND Prineo- This is a mesh tape dressing that is covered with glue. It should remain in place until the incision is properly healed, usually 10-14 days. This dressing is designed to naturally slough off. You may trim the excess mesh tape as it peels off. Incision may be briefly wet in a shower. Dry immediately by blotting with a clean, dry towel. Do not bath or swim until instructed by your doctor. Do not scratch, rub, or pick at the dressing. Do not apply any topical ointments or lotions until dressing is completely removed and/or instructed by your doctor. There may be a small piece of suture material at one end of your incision. Do not pull or trim this. If it is bothersome or catching on clothing, you may cover it with a band-aid. FOLLOW UP VISIT: If appointment is not already scheduled: Please call [facility] [place] to make a follow-up appointment for 2 weeks after your surgery at . Stand-Alone Forms: My [facility] Medications and DC Order Prescriptions: New aspirin 81 mg Tablet,Delayed Release (Dr/Ec) 81 mg PO BID 30 Days Qty: 60 0RF acetaminophen [Tylenol Extra Strength] 500 mg Tablet 1,000 mg PO Q8H 7 Days Qty: 42 0RF oxycodone 5 mg Tablet 5 - 10 mg PO Q4H PRN (Reason: pain) Qty: 36 0RF celecoxib [Celebrex] 200 mg capsule 200 mg PO BID PRN (Reason: pain) Qty: 60 0RF polyethylene glycol 3350 [Miralax] 17 gram powder in packet 17 g PO DAILY PRN (Reason: constipation) Qty: 5 0RF Continued omeprazole 40 mg capsule,delayed release(DR/EC) 40 mg PO DAILY Qty: 90 2RF atorvastatin 20 mg tablet 20 mg PO QPM Qty: 90 2RF Discontinued ibuprofen 200 mg Tablet 200 mg PO Q6H PRN (Reason: Pain) Discharge Orders: Discharge Order (Routine); Ordered 04/14/22 Ordered By: Nathan Araujo Admission Data Admit Date/Time: 04/13/22 10:46 Attending Provider: Roldan Mcguire Admit Provider: Roldan Mcguire Primary Care Provider: Judy Watkins Other Interventions: Discharge Summary Assessment (RN) Last Done: 04/14/22 10:13
== END 2022-04-14 12:17 | disposition home health service (06) ==
LOC: PACUINP 06:37 → ASU 06:37 → 3E 15:17